=== PATIENT | female | born 1985 | race Caucasian/White ===

== ENCOUNTER 2016-04-21 10:32 | Inpatient (IN) | payer OTHER ==
[2016-04-21 11:52] LABS: Albumin 2.8 g/dL (3.2-5.2); Calcium 8.7 mg/dL (8.6-10.3); EGFR African American 165.8 (>60); EGFR Non-African American 128.9 (>60); Potassium 3.8 mmol/L (3.5-5.0); Total Bilirubin 0.3 mg/dL (0.2-1.0); Total Protein 5.8 g/dL (6.4-8.9)
[2016-04-21 12:41] LABS: Hematocrit 30 % (35-47); Hemoglobin 9.6 g/dl (12.0-16.0); Mean Corpuscular HGB Conc 32 g/dl (31-36); Mean Corpuscular Hemoglobin 24 pg (27-31); Mean Corpuscular Volume 74 fL (80-97); Mean Platelet Volume 9 um3 (7.4-10.4); Red Blood Count 3.97 10^6/ul (4.0-5.4); Red Cell Distribution Width 15 % (10.5-15); White Blood Count 11.1 10^3/ul (3.5-10.8)
[2016-04-21 12:43] LABS: Comments Flag Yes
[2016-04-21 13:00] LABS: Urine Bacteria 1+ (Absent); Urine Bilirubin Negative (Negative); Urine Glucose Negative (Negative); Urine Nitrite Negative (Negative)
[2016-04-21] MEDS ORDERED: Oxytocin in LR* 20 UNITS/1,000 ML BAG IVPB SCH ×3 (13:00→21:00)
[2016-04-21] MEDS ORDERED: OBEPIDURAL* 250 ML ONE (13:17)
[2016-04-21] MEDS ORDERED: EPHEDrine (Pressors)* 50 MG/ML VIAL IV PUSH PRN (15:29)
[2016-04-21] MEDS ORDERED: Phenylephrine IV* 40 MCG/ML 10 ML SYRINGE IV PUSH PRN (15:29)
[2016-04-21] MEDS ORDERED: Sodium Citrate/Citric Acid* 15 ML UDC PO PRN (15:29)
[2016-04-21] MEDS ORDERED: Famotidine TAB* 20 MG PO PRN (15:29)
[2016-04-21] MEDS ORDERED: Acetaminophen TAB* 325 MG ONE (15:41)
[2016-04-21] MEDS ORDERED: Misoprostol TAB* 200 MCG PR ONE (16:44)
[2016-04-21] MEDS ORDERED: Acetaminophen TAB* 325 MG PO PRN (16:44)
[2016-04-21] MEDS ORDERED: Dibucaine 1% 28.35 GM TUBE PR PRN (16:44)
[2016-04-21] MEDS ORDERED: Witch Hazel PAD* JAR TOPICAL PRN (16:44)
[2016-04-21] MEDS ORDERED: Glycerin ADULT SUPP PR PRN (16:44)
[2016-04-21] MEDS ORDERED: traMADol TAB* 50 MG PO PRN (16:47)
[2016-04-21] MEDS ORDERED: Ammonia Inhalant* 1 EA AMP ONE (18:14)
[2016-04-21] MEDS: Ibuprofen TAB* 600 MG PO PRN (18:30)
[2016-04-21] MEDS ORDERED: fentaNYL* 50 MCG/ML 2 ML VIAL (100 MCG VIAL) ONE (20:45)
[2016-04-21] MEDS ORDERED: Oxytocin in LR* 20 UNITS/1,000 ML BAG IVPB ONE (20:52)
[2016-04-21] MEDS ORDERED: fentaNYL* 50 MCG/ML 2 ML VIAL (100 MCG VIAL) IV ONE (21:15)
[2016-04-21] MEDS ORDERED: hydrALAZINE IV* 20 MG/ML VIAL ONE (21:25)
[2016-04-21 21:27] LABS: Comments Flag Yes; Hematocrit 23 % (35-47); Hemoglobin 7.5 g/dl (12.0-16.0)
[2016-04-21] MEDS: DULoxetine DR CAP* 20 MG CAP.DR PO SCH (23:03)
[2016-04-21] MEDS: Amitriptyline TAB* 50 MG PO SCH (23:04)
[2016-04-21] MEDS: Docusate CAP* 100 MG PO SCH (23:04)
[2016-04-21] MEDS: Pantoprazole TAB (NF) 20 MG TAB PO SCH (23:05)
[2016-04-22] MEDS: Ibuprofen TAB* 600 MG PO PRN ×4 (03:56→23:02)
[2016-04-22 07:57] LABS: Hematocrit 22 % (35-47); Mean Corpuscular HGB Conc 33 g/dl (31-36); Mean Corpuscular Hemoglobin 24 pg (27-31); Mean Corpuscular Volume 74 fL (80-97); Mean Platelet Volume 9 um3 (7.4-10.4); Red Blood Count 2.91 10^6/ul (4.0-5.4); Red Cell Distribution Width 16 % (10.5-15); White Blood Count 12.5 10^3/ul (3.5-10.8)
[2016-04-22 07:59] LABS: Comments Flag Yes
[2016-04-22 08:00] LABS: Add Diff/Slide Review? Slide Review Added
[2016-04-22] MEDS: Docusate CAP* 100 MG PO SCH ×3 (09:14→21:09)
[2016-04-22] MEDS: Ferrous Gluconate TAB* 324 MG TAB PO SCH ×2 (09:15→21:09)
[2016-04-22] MEDS: Simethicone TAB* 80 MG TAB.CHEW PO SCH (19:23)
[2016-04-22] MEDS: OBEPIDURAL* 250 ML EPIDURAL SCH (19:24)
[2016-04-22] MEDS: DULoxetine DR CAP* 20 MG CAP.DR PO SCH (21:09)
[2016-04-22] MEDS: Amitriptyline TAB* 50 MG PO SCH (21:10)
[2016-04-22] MEDS: Pantoprazole TAB (NF) 20 MG TAB PO SCH (21:10)
[2016-04-23] MEDS: Docusate CAP* 100 MG PO SCH ×3 (08:51→21:15)
[2016-04-23] MEDS: Ferrous Gluconate TAB* 324 MG TAB PO SCH ×2 (08:51→21:15)
[2016-04-23] MEDS: Ibuprofen TAB* 600 MG PO PRN ×2 (08:52→17:22)
[2016-04-23] MEDS: Labetalol TAB* 200 MG PO SCH ×2 (17:22→20:16)
[2016-04-23] MEDS: Pantoprazole TAB (NF) 20 MG TAB PO SCH (20:17)
[2016-04-23] MEDS: DULoxetine DR CAP* 20 MG CAP.DR PO SCH (21:15)
[2016-04-23] MEDS: Amitriptyline TAB* 50 MG PO SCH (21:15)
[2016-04-24] MEDS: Ibuprofen TAB* 600 MG PO PRN ×2 (01:07→08:22)
[2016-04-24] MEDS: Ferrous Gluconate TAB* 324 MG TAB PO SCH (08:21)
[2016-04-24] MEDS: Docusate CAP* 100 MG PO SCH (08:22)
[2016-04-24] MEDS: Labetalol TAB* 200 MG PO SCH (08:22)
[2016-04-24 08:39] VITALS: BP 149/94
== END 2016-04-24 12:46 | disposition home or self-care (01) | DRG 560 ==
LOC: MCHOBOUT 10:32 → MCHOB 11:58
PROVIDERS: ADMIT Obstetrics & Gynecology; ATTEND Obstetrics & Gynecology
PROC: 10E0XZZ Delivery of Products of Conception, External Approach (ICD-10-PCS; principal; 2016-04-21)
PROC: 3E033VJ Introduction of Other Hormone into Peripheral Vein, Percutaneous Approach (ICD-10-PCS; 2016-04-21)
PROC: 10907ZC Drainage of Amniotic Fluid, Therapeutic from Products of Conception, Via Natural or Artificial Opening (ICD-10-PCS; 2016-04-21)
PROC: 0HQ9XZZ Repair Perineum Skin, External Approach (ICD-10-PCS; 2016-04-21)
DX: O14.94 Unspecified pre-eclampsia, complicating childbirth (principal); Z68.42 Body mass index [BMI] 45.0-49.9, adult; D62 Acute posthemorrhagic anemia; E66.01 Morbid (severe) obesity due to excess calories; O99.344 Other mental disorders complicating childbirth; O99.214 Obesity complicating childbirth; F32.9 Major depressive disorder, single episode, unspecified; O70.0 First degree perineal laceration during delivery; O90.81 Anemia of the puerperium; Z3A.38 38 weeks gestation of pregnancy; Z37.0 Single live birth
CPT/HCPCS: 36415; 80053; 81003; 81015; 84550; 85014; 85018; 85025; 85027; 86850; 86900; 86901; 86922; 87086; A9270-GY; J0360; J3010

== ENCOUNTER 2016-10-06 23:50 | Emergency (ER) | payer OTHER ==
[2016-10-07] MEDS ORDERED: NS 0.9% 1000 ML* 1,000 ML IV ONE (00:18)
[2016-10-07 00:41] LABS: Comments Flag Yes; Hematocrit 30 % (35-47); Hemoglobin 9.1 g/dl (12.0-16.0); Mean Corpuscular HGB Conc 31 g/dl (31-36); Mean Corpuscular Hemoglobin 19 pg (27-31); Mean Platelet Volume 8 um3 (7.4-10.4); Red Blood Count 4.73 10^6/ul (4.0-5.4); Red Cell Distribution Width 19 % (10.5-15); White Blood Count 8.7 10^3/ul (3.5-10.8)
[2016-10-07 00:42] LABS: Mean Corpuscular Volume 62 fL (80-97)
[2016-10-07 00:57] LABS: ALT 38 U/L (7-52); AST 41 U/L (13-39); Albumin 4.1 g/dL (3.2-5.2); Alkaline Phosphatase 123 U/L (34-104); BUN/Creatinine Ratio 6.1 (8-20); Blood Urea Nitrogen 4 mg/dL (6-24); CO2 Carbon Dioxide 21 mmol/L (22-32); Calcium 8.8 mg/dL (8.6-10.3); Chloride 105 mmol/L (101-111); Creatine Kinase 799 U/L (10-223); EGFR African American 134.3 (>60); EGFR Non-African American 104.5 (>60); Globulin 2.7 g/dL (2-4); Glucose 145 mg/dL (70-100); Magnesium 2.2 mg/dL (1.9-2.7); Sodium 138 mmol/L (133-145); Total Protein 6.8 g/dL (6.4-8.9)
[2016-10-07 00:58] LABS: Anion Gap 12 mmol/L (2-11); Potassium 2.7 mmol/L (3.5-5.0)
[2016-10-07] MEDS ORDERED: Ondansetron INJ* 2 MG/ML VIAL ONE (01:06)
[2016-10-07 01:07] LABS: Acetaminophen < 15 mcg/mL; Alcohol 183 mg/dL (<10); Salicylate < 2.50 mg/dL (<30)
[2016-10-07] MEDS ORDERED: Ondansetron INJ* 2 MG/ML VIAL IV ONE (01:12)
[2016-10-07 01:16] LABS: TSH (Thyroid Stimulating Horm) 1.45 mcIU/mL (0.34-5.60)
[2016-10-07] MEDS ORDERED: Calcium Carbonate CHEW TAB* 500 MG (TUMS) PO ONE (05:17)
[2016-10-07] MEDS ORDERED: Magnesium Oxide TAB* 400 MG PO ONE (05:17)
[2016-10-07] MEDS ORDERED: Potassium Chlor TAB* 20 MEQ TAB.ER PO ONE (05:18)
[2016-10-07 06:15] LABS: Urine Bacteria 1+ (Absent); Urine Bilirubin Negative (Negative); Urine Glucose Negative (Negative); Urine Nitrite Negative (Negative)
[2016-10-07 07:56] VITALS: BP 142/86
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
--- NOTE | 2016-10-07 08:29 | RAD ---
INDICATION: Change of mental status COMPARISON: None TECHNIQUE: Noncontrast axial source images were acquired from the skull base to the vertex. FINDINGS: Ventricles/sulci: The ventricles and cisterns are normal in size and configuration for age. Brain parenchyma: There is no focal parenchymal finding, evidence of intracranial mass, or intracranial mass effect. Intracranial hemorrhage:None. Extra-axial spaces: Incidental note is made of 2 cm posterior fossa arachnoid cyst with associated mild pressure erosion of the inner table. Calvarium: There is no calvarial fracture or other calvarial abnormality. Scalp: There is no evidence of scalp or extracalvarial soft tissue abnormality. Paranasal sinuses/mastoid: The paranasal sinuses and mastoid air cells are clear. Other: None. IMPRESSION: No acute cranial findings. Incidental right posterior fossa arachnoid cyst
== END 2016-10-07 07:48 | disposition home or self-care (01) ==
LOC: ED 23:50
DX: R11.10 Vomiting, unspecified (principal); Z87.891 Personal history of nicotine dependence; F10.129 Alcohol abuse with intoxication, unspecified; Y90.6 Blood alcohol level of 120-199 mg/100 ml; E87.6 Hypokalemia; D64.9 Anemia, unspecified; R03.0 Elevated blood-pressure reading, without diagnosis of hypertension
CPT/HCPCS: 36415; 70450; 80053; 80320; 80329; 81003; 81015; 82140; 82550; 83605; 83735; 84443; 84484; 85025; 85610; 87077; 87086; 87186; 93005; 96374; 96375; 99283; A9270-GY; G0480; J2405

== ENCOUNTER 2017-08-14 07:25 | Inpatient (IN) | payer OTHER ==
[2017-08-14] MEDS ORDERED: Oxytocin in LR* 20 UNITS/1,000 ML BAG IVPB ONE (09:27)
[2017-08-14 09:40] LABS: Hematocrit 34 % (35-47); Mean Corpuscular HGB Conc 32 g/dl (31-36); Mean Corpuscular Hemoglobin 23 pg (27-31); Mean Corpuscular Volume 72 fL (80-97); Mean Platelet Volume 7.8 um3 (7.4-10.4); Platelet Count 269 10^3/ul (150-450); Red Blood Count 4.74 10^6/ul (4.00-5.40); Red Cell Distribution Width 26 % (10.5-15); White Blood Count 9.7 10^3/ul (3.5-10.8)
[2017-08-14] MEDS ORDERED: Oxytocin in LR* 20 UNITS/1,000 ML BAG IVPB SCH (10:00)
--- NOTE | 2017-08-14 10:00 | HP ---
General Information - General Information Maternal Age: 31 Grav: 5 Para: 3 SAB: 1 IEA: 0 Estimated Due Date: 08/20/17 Determined By: LMP Gestational Age in Weeks and Days: 39 Weeks and 1 Days Maternal Blood Type and Rh: O Positive - Results this Serology/RPR Result: Non-Reactive Rubella Result: Immune HBsAg Result: Negative HIV Result: Negative GBS Culture Result: Negative Past Medical History Delivery History: Hx Uncomplicated Vaginal Delivery, See Records Pertinent Past Medical History: See Records Past Medical History Comment: Obesity BMI 41 Chronic Hypertension Rheumatoid arthritis Pertinent Past Surgical History: See Records - Cholecystectomy 2007 Pertinent Family History: See Records - Antepartal Records Antepartal Records: Reviewed, Complicated by: - Morbid obesity Review of Systems Constitutional: Comfortable CV Complaint: No Respiratory: Shortness of Breath: No Gastrointestinal: No Nausea/Vomiting, Normal Bowel Movement Genitourinary: No Dysuria, No Bleeding, No Leaking Fluid Musculoskeletal: No Complaint Neurological: No Headache, No Visual Changes Movement: Normal Exam Allergies/Adverse Reactions: Allergies No Known Allergies Allergy (Verified 08/14/17 08:15) Height 5' 8" Weight 275lbs Temp 97.6 BP122/59 p 90's RR 20 Pox 98% RA Lab Values - Entire Visit: Laboratory Tests 08/14/17 08/14/17 09:18 09:18 WBC 9.7 RBC 4.74 Hgb 11.0 L Hct 34 L MCV 72 L MCH 23 L MCHC 32 RDW 26 H Plt Count 269 MPV 7.8 Blood Type O Positive - Measurements Height: 5 ft 8 in Weight: 275 lb Weight in lbs: [id number] Body Mass Index (BMI): 41.8 Pre- Weight: 280 lb Weight Gained This : -5 lbs and 0 ozs - Exam Abdomen: No Upper Quadrant Pain Breast: Breast Exam Deferred CVA: No CVA Tenderness Extremities: No Edema Heart: Normal Rhythm/Heart Sounds HEENT: No Significant Findings Lungs: Clear Bilaterally Rectal: Rectal Exam Deferred Reflexes: DTR 2+ Thyroid: No Thyromegaly - Abdominal Exam Abdomen Exam: Non-Tender, Fundal Height Consistent with Dates - Ultrasound/Biophysical Profile Ultrasound Status: Not Done Targeted Exam Findings See L&D Outpatient Visit Provider Note for Findings: N/A Cervical Exam: 4cm Effacement: 70% Station: -1 Presenting Part: Vertex Membrane Status: Intact Bleeding/Discharge: None EFM Findings - External Monitor Findings Baseline Heart Rate: 130 External Monitor Findings: Accelerations Present, No Pattern of Variable or Late Decelerations Contractions: None Assessment/Plan - Reason for Visit Reason for Visit: Patient is a 31 y/o with an IUP at 39 1/7 weeks complicated by morbid obesity and unstable lie. Advanced cervical dilation with good encarnacion score and vertex presentation admitted for induction of labor. - Obstetrical Risk Factors Obstetrical Risk Factors: Obesity, Chronic Hypertension Risk Factors Comment: Unstable lie now vertex. - Plan Plan: Induction - Date/Time of Admission Date of Admission: 08/14/17 Time of Admission: 09:00
[2017-08-14] MEDS ORDERED: OBEPIDURAL* 250 ML EPIDURAL ONE (10:07)
[2017-08-14 10:46] LABS: ABS Basophils 0 10^3/ul (0-0.2); ABS Eosinophils 0 10^3/ul (0-0.6); ABS Lymphocytes 2.1 10^3/ul (1.0-4.8); ABS Monocytes 0.8 10^3/ul (0-0.8); ABS Neutrophils 6.7 10^3/ul (1.5-7.7); ABS Nucleated RBC 0 10^3/ul; Eosinophil % 0.4 % (0-6); Lymphocyte % 21.5 % (25-47); Nucleated Red Blood Cells % 0.1
[2017-08-14] MEDS ORDERED: EPHEDrine (Pressors)* 50 MG/ML VIAL IV PUSH PRN ×2 (11:04)
[2017-08-14] MEDS ORDERED: Sodium Citrate/Citric Acid* 15 ML UDC PO PRN (11:04)
[2017-08-14] MEDS ORDERED: Famotidine TAB* 20 MG PO PRN (11:04)
[2017-08-14] MEDS ORDERED: Phenylephrine IV* 40 MCG/ML 10 ML SYRINGE IV PUSH PRN ×2 (11:04)
[2017-08-14] MEDS ORDERED: OBEPIDURAL* 250 ML EPIDURAL SCH (12:00)
[2017-08-14] MEDS ORDERED: Witch Hazel PAD* JAR TOPICAL PRN (16:20)
[2017-08-14] MEDS ORDERED: Dibucaine 1% 28.35 GM TUBE PR PRN (16:20)
[2017-08-14] MEDS ORDERED: Glycerin ADULT SUPP PR PRN (16:20)
[2017-08-14] MEDS: Ibuprofen TAB* 600 MG PO PRN (16:56)
--- NOTE | 2017-08-14 17:12 | PROCNOTE ---
[facility] OB: Delivery Note - Delivery A Date of : 08/14/17 Time of : 16:13 Sex: Male Weight at : 7 lb 15 oz Score 1 Minute: 9 Score 5 Minutes: 9 Gestational Age in Weeks and Days at Delivery: 39 Weeks and 1 Days Delivery Method: Spontaneous Vaginal Labor: Induced Did Patient attempt ?: N/A, No Previous Amniotic Fluid: Clear Estimated Blood Loss: 100 Anesthesia/Analgesia: CEI for Labor Delivered By: Saul Estrella - Nursery Level of Nursery: Regular/Bedside - Perineum Perineal Injury: 1st Degree Perineal Injury Comment: small and not bleeding Perineal Repair: None - Events Delivery Events of Note: Pitocin During Labor
[2017-08-14] MEDS: Docusate CAP* 100 MG PO SCH (21:06)
[2017-08-14] MEDS: Gabapentin CAP(*) 300 MG PO SCH (21:06)
[2017-08-15] MEDS: Ibuprofen TAB* 600 MG PO PRN ×3 (00:10→12:36)
[2017-08-15] MEDS: Simethicone TAB* 80 MG TAB.CHEW PO SCH (00:19)
[2017-08-15] MEDS: Acetaminophen TAB* 325 MG PO PRN ×2 (02:39→08:40)
[2017-08-15 08:18] LABS: Hematocrit 31 % (35-47); Hemoglobin 10.1 g/dl (12.0-16.0); Mean Corpuscular HGB Conc 33 g/dl (31-36); Mean Corpuscular Hemoglobin 24 pg (27-31); Mean Corpuscular Volume 73 fL (80-97); Mean Platelet Volume 8.1 um3 (7.4-10.4); Platelet Count 230 10^3/ul (150-450); Red Blood Count 4.29 10^6/ul (4.00-5.40); Red Cell Distribution Width 26 % (10.5-15); White Blood Count 8.7 10^3/ul (3.5-10.8)
[2017-08-15] MEDS: Docusate CAP* 100 MG PO SCH ×2 (08:36→12:36)
[2017-08-15] MEDS: Gabapentin CAP(*) 300 MG PO SCH ×2 (08:40→14:08)
[2017-08-15] MEDS ORDERED: Ferrous Gluconate TAB* 324 MG TAB PO SCH (09:00)
[2017-08-15] MEDS ORDERED: Propranolol TAB* 10 MG PO SCH (09:00)
[2017-08-15 09:08] LABS: ABS Basophils 0 10^3/ul (0-0.2); ABS Eosinophils 0.1 10^3/ul (0-0.6); ABS Lymphocytes 2.4 10^3/ul (1.0-4.8); ABS Monocytes 0.5 10^3/ul (0-0.8); ABS Neutrophils 5.7 10^3/ul (1.5-7.7); ABS Nucleated RBC 0 10^3/ul; Eosinophil % 1.2 % (0-6); Lymphocyte % 27.4 % (25-47); Nucleated Red Blood Cells % 0
[2017-08-15 12:09] VITALS: BP 125/83
== END 2017-08-15 18:45 | disposition home or self-care (01) | DRG 560 ==
LOC: MCHOBOUT 07:25 → MCHOB 09:08
PROVIDERS: ADMIT Obstetrics & Gynecology; ATTEND Obstetrics & Gynecology
PROC: 10907ZC Drainage of Amniotic Fluid, Therapeutic from Products of Conception, Via Natural or Artificial Opening (ICD-10-PCS; principal; 2017-08-14)
PROC: 10E0XZZ Delivery of Products of Conception, External Approach (ICD-10-PCS; 2017-08-14)
DX: O99.214 Obesity complicating childbirth (principal); Z68.41 Body mass index [BMI] 40.0-44.9, adult; E66.01 Morbid (severe) obesity due to excess calories; O16.4 Unspecified maternal hypertension, complicating childbirth; O70.0 First degree perineal laceration during delivery; O99.02 Anemia complicating childbirth; Z3A.39 39 weeks gestation of pregnancy; Z37.0 Single live birth
CPT/HCPCS: 36415; 85025; 86850; 86900; 86901; A9270-GY

== ENCOUNTER 2017-08-18 10:19 | Emergency (ER) | payer OTHER ==
[2017-08-18] MEDS ORDERED: NS 0.9% 1000 ML* 1,000 ML IV ONE (11:40)
[2017-08-18] MEDS ORDERED: Ketorolac INJ* 30 MG/ML 1 ML VIAL IV PUSH ONE (11:40)
[2017-08-18] MEDS ORDERED: Metoclopramide IV* 5 MG/ML 2 ML VIAL IV ONE (11:40)
[2017-08-18] MEDS ORDERED: diPHENhydraMINE PO* 50 MG PO ONE (11:40)
[2017-08-18 12:18] LABS: EGFR Non-African American 133.7 (>60)
--- NOTE | 2017-08-18 12:22 | RAD ---
INDICATION: Fever COMPARISON: None TECHNIQUE: PA and lateral dual-energy views were obtained. FINDINGS: Bones/Soft Tissues: There are no acute bony findings. Cardiomediastinal: The cardiomediastinal silhouette is normal. Lungs: There are no infiltrates. Pleura: There are no pleural effusions. Other: None IMPRESSION: NEGATIVE EXAMINATION.
[2017-08-18 12:49] LABS: ABS Nucleated RBC 0 10^3/ul; Hematocrit 36 % (35-47); Hemoglobin 11.7 g/dl (12.0-16.0); Mean Corpuscular HGB Conc 33 g/dl (31-36); Mean Corpuscular Hemoglobin 24 pg (27-31); Mean Corpuscular Volume 74 fL (80-97); Mean Platelet Volume 7.8 um3 (7.4-10.4); Nucleated Red Blood Cells % 0.2; Platelet Count 206 10^3/ul (150-450); Red Blood Count 4.87 10^6/ul (4.00-5.40); Red Cell Distribution Width 26 % (10.5-15); White Blood Count 4.2 10^3/ul (3.5-10.8)
[2017-08-18 12:54] LABS: ABS Neutrophils 2.6 10^3/ul (1.5-7.7); ABS Neutrophils 2.7 10^3/ul (1.5-7.7); Monocytes % 7 % (0-7)
--- NOTE | 2017-08-18 14:12 | RAD ---
INDICATION: Evaluate for retained products of conception. August 14, 2017 COMPARISON: None TECHNIQUE: Longitudinal and transverse transabdominal scans of the pelvis were obtained. FINDINGS: Uterus: The uterus is enlarged in this patient. There are no focal masses. The uterus measures 19.4 x 8.9 x 13.5 cm. Endometrial thickness: The endometrial thickness is measured at 0.4 cm. The endometrium is thickened and heterogeneous. This may be related to blood since the patient is recently . Retained products cannot absolutely be excluded at this time. Free fluid: There is no significant free fluid . Ovaries: The ovaries are normal in size. The right ovary measures 3.2 x 2.0 x 2.5 cm. The left ovary measures 4.1 x 2.3 x 3.4 cm. . Doppler interrogation demonstrates flow to each ovary. Other: None IMPRESSION: POST UTERUS WITH HETEROGENEOUS AND THICKENED ENDOMETRIUM MOST LIKELY RELATED TO BLADDER ALTHOUGH RETAINED PRODUCTS CANNOT BE EXCLUDED.
[2017-08-18 15:33] LABS: Urine Appearance Clear; Urine Blood 2+ (Negative); Urine Color Yellow; Urine Ketones Negative (Negative); Urine Protein Negative (Negative); Urine Specific Gravity 1.009 (1.010-1.030); Urine Urobilinogen Negative (Negative)
[2017-08-18 16:03] VITALS: BP 121/87
--- NOTE | 2017-08-18 16:50 | ED ---
Giovanni Gonzalez Angela, scribed for Julius Fuentes MD on 08/18/17 at 1122 . HPI Febrile Illness - HPI Summary HPI Summary: This pt is a 31 y/o female presenting to [facility] referred by Dr. Morgan c/o fever and chills since yesterday afternoon. Pt additionally reports headache x3 days, located on the frontal head. Pt states yesterday at 15:30 she suddenly began to feel chills. She was shivering and freezing in warm temperature of about 90F, per . Denies abd pain, cough, sinus congestion, sore throat, ear aches. Pt recently gave 4 days ago and had a vaginal delivery at 36 weeks. She didn't have any problems or issues with her . She is . - History of Current Complaint Chief Complaint: EDFever Time Seen by Provider: 08/18/17 11:02 Hx Obtained From: Patient Onset/Duration: Started Days Ago - 1, Resolved Timing: Lasting Days - 1 Current Severity: Moderate Pain Intensity: 6 - frontal headache Pain Scale Used: 0-10 Numeric Aggravating Factors: Nothing Alleviating Factors: Nothing Associated Signs and Symptoms: Chills, Headache, Other: - NEGATIVE: abd pain, cough, sinus congestion, sore throat, ear aches. - Allergy/Home Medications Allergies/Adverse Reactions: Allergies Allergy/AdvReac Type Severity Reaction Status Date / Time No Known Allergies Allergy Verified 08/18/17 10:32 PMH/Surg Hx/FS Hx/Imm Hx Cardiovascular History: Reports: Hx Hypertension Denies: Hx Myocardial Infarction Respiratory History: Denies: Hx Chronic Obstructive Pulmonary Disease (COPD) Musculoskeletal History: Reports: Hx Back Problems, Hx Fibromyalgia, Other Musculoskeletal History - Right Knee Pain Neurological History: Reports: Hx Headaches, Hx Migraine Psychiatric History: Reports: Hx Anxiety, Hx Depression - Surgical History Surgery Procedure, Year, and Place: cholecystectomy 2005. tonsilectomy 1995 Infectious Disease History: Yes Infectious Disease History: Denies: Traveled Outside the [place] in Last 30 Days - Family History Known Family History: Positive: Other - GERD - Social History Alcohol Use: None Alcohol Amount: stated none in Substance Use Type: Reports: Other Substance Use Comment - Amount & Last Used: Tramadol, Gabapentin Smoking Status (MU): Former Smoker Type: Cigarettes Review of Systems Positive: Fever, Chills Negative: Sore Throat, Ear Ache, Nasal Discharge, Other - sinus congestion Negative: Cough Negative: Abdominal Pain Positive: Headache All Other Systems Reviewed And Are Negative: Yes Physical Exam - Summary Physical Exam Summary: Appearance: The patient is well-nourished in no acute distress and in no acute pain. Skin: The skin is warm and dry and skin color reflects adequate perfusion. HEENT: The head is normocephalic and atraumatic. The pupils are equal and reactive. The conjunctivae are clear and without drainage. Nares are patent and without drainage. Mouth reveals moist mucous membranes and the throat is without erythema and exudate. The external ears are intact. The ear canals are patent and without drainage. The tympanic membranes are intact. Neck: the neck is supple with full range of motion and non-tender. There are no carotid bruits. There is no neck vein distension. Respiratory: Chest is non-tender. Lungs are clear to auscultation and breath sounds are symmetrical and equal. Cardiovascular: Heart is regular rate and rhythm. There is no murmur or rub auscultated. There is no peripheral edema and pulses are symmetrical and equal. Abdomen: The abdomen is soft and non-tender. There are normal bowel sounds heard in all four quadrants and there is no organomegaly palpated. Musculoskeletal: There is no back tenderness noted. Extremities are non-tender with full range of motion. There is good capillary refill. There is no peripheral edema or calf tenderness elicited. Neurological: Patient is alert and oriented to person, place and time. The patient has symmetrical motor strength in all four extremities. Cranial nerves are grossly intact. Deep tendon reflexes are symmetrical and equal in all four extremities. Psychiatric: The patient has an appropriate affect and does not exhibit any anxiety or depression. Triage Information Reviewed: Yes Vital Signs On Initial Exam: Initial Vitals Temp Pulse Resp BP Pulse Ox 97.1 F 91 17 131/94 97 08/18/17 10:33 08/18/17 10:33 08/18/17 10:33 08/18/17 10:33 08/18/17 10:33 Vital Signs Reviewed: Yes Diagnostics - Vital Signs Vital Signs Temp Pulse Resp BP Pulse Ox 08/18/17 10:33 97.1 F 91 17 131/94 97 - Laboratory Lab Results: Lab Results 08/18/17 08/18/17 08/18/17 Range/Units 11:52 11:52 14:55 WBC 4.2 (3.5-10.8) 10^3/ul RBC 4.87 (4.00-5.40) 10^6/ul Hgb 11.7 L (12.0-16.0) g/dl Hct 36 (35-47) % MCV 74 L (80-97) fL MCH 24 L (27-31) pg MCHC 33 (31-36) g/dl RDW 26 H (10.5-15) % Plt Count 206 (150-450) 10^3/ul MPV 7.8 (7.4-10.4) um3 Neut % (Auto) Not Reportable Lymph % (Auto) Not Reportable [place] % (Auto) Not Reportable Eos % (Auto) Not Reportable Baso % (Auto) Not Reportable Absolute Neuts (auto) 2.7 (1.5-7.7) 10^3/ul Absolute Lymphs (auto) Not Reportable Absolute Monos (auto) Not Reportable Absolute Eos (auto) Not Reportable Absolute Basos (auto) Not Reportable Absolute Nucleated RBC 0 10^3/ul Immature Gran % 4 (0-9) % Neutrophils % 63 (38-83) % Band Neutrophils % 4 (0-8) % Lymphocytes % 18 L (25-47) % Reactive Lymphs % 8 H (0-6) % Monocytes % 7 (0-7) % Eosinophils % 0 (0-6) % Basophils % 0 (0-2) % Nucleated RBC % 0.2 Abs Neuts (Manual) 2.6 (1.5-7.7) 10^3/ul Abs Lymphs (Manual) 0.8 L (1.0-4.8) 10^3/ul Abs Monocytes (Manual) 0.3 (0-0.8) 10^3/ul Absolute Eos (Manual) 0 (0-0.6) 10^3/ul Abs Basophils (Manual) 0 (0-0.2) 10^3/ul Normal RBC Morphology Not Reportable Microcytosis 1+ Hem Pathologist Commnt Cancelled Sodium 138 (135-145) mmol/L Potassium 3.8 (3.5-5.0) mmol/L Chloride 105 (101-111) mmol/L Carbon Dioxide 23 (22-32) mmol/L Anion Gap 10 (2-11) mmol/L BUN 5 L (6-24) mg/dL Creatinine 0.53 (0.51-0.95) mg/dL Est GFR ( Amer) 161.8 (>60) Est GFR (Non-Af Amer) 133.7 (>60) BUN/Creatinine Ratio 9.4 (8-20) Glucose 90 (70-100) mg/dL Calcium 8.8 (8.6-10.3) mg/dL Total Bilirubin 0.30 (0.2-1.0) mg/dL AST 16 (13-39) U/L ALT 13 (7-52) U/L Alkaline Phosphatase 121 H (34-104) U/L C-Reactive Protein 80.78 H (<8.01) mg/L Total Protein 6.3 L (6.4-8.9) g/dL Albumin 3.2 (3.2-5.2) g/dL Globulin 3.1 (2-4) g/dL Albumin/Globulin Ratio 1.0 (1-3) Urine Color Yellow Urine Appearance Clear Urine pH 7.0 (5-9) Ur Specific [place] 1.009 L (1.010-1.030) Urine Protein Negative (Negative) Urine Ketones Negative (Negative) Urine Blood 2+ A (Negative) Urine Nitrate Negative (Negative) Urine Bilirubin Negative (Negative) Urine Urobilinogen Negative (Negative) Ur Leukocyte Esterase Trace A (Negative) Urine WBC (Auto) 1+(6-10/hpf) A (Absent) Urine RBC (Auto) 3+(>10/hpf) A (Absent) Ur Squamous Epith Cells Present A (Absent) Urine Bacteria Absent (Absent) Urine Glucose Negative (Negative) Result Diagrams: 08/18/17 11:52 08/18/17 11:52 Lab Statement: Any lab studies that have been ordered have been reviewed, and results considered in the medical decision making process. - Radiology Chest XR Xray Interpretation: No Acute Changes - IMPRESSION: Negative examination. Dr. Fuentes has reviewed this radiology report. Radiology Interpretation Completed By: Radiologist - Additional Comments Diagnostic Additional Comments: Pelvic Ultrasound, as read by radiologist IMPRESSION: Post uterus with heterogeneous and thickened endometrium most likely related to bladder although retained products cannot be excluded. Dr. Fuentes has reviewed this radiology report. Course/Dx - Course Course Of Treatment: Ms. Joshi presented to the emergency department complaining of headache and fever for the past 3 days. She gave 4 days ago. It was a spontaneous vaginal delivery that was induced secondary to hypertension. She has a history of headaches, this one is frontal and similar to previous. She is afebrile here. She has a small amount of abdominal pain but she says less than her previous pregnancies. Labs were obtained and were within normal limits including a urine which showed no protein. Her diastolic blood pressure was in the high 80s or low 90s while she was here. Ultrasound was equivocal for retained products. I discussed the situation with Dr. Morgan who recommended discharge and follow-up with Dr. Ortiz. She got significant improvement of her headache with a migraine cocktail of Benadryl, ketorolac and Reglan. - Diagnoses Provider Diagnoses: Headache - Provider Notifications Discussed Care Of Patient With: Leonid Morgan Time Discussed With Above Provider: 14:58 Instructed by Provider To: Other - I discussed pt care with MARCOS Liang. Discharge - Sign-Out/Discharge Documenting (check all that apply): Discharge/Admit/Transfer - Discharge - Discharge Plan Condition: Stable Disposition: HOME Patient Education Materials: General Headache (ED) Referrals: [facility] [Outside] Saul Estrella MD [Primary Care Provider] - Additional Instructions: Please follow up with your primary care provider in 2-3 days. RETURN TO THE ED FOR ANY WORSENING SYMPTOMS. - Billing Disposition and Condition Condition: STABLE Disposition: Home The documentation as recorded by the Giovanni sal Angela accurately reflects the service I personally performed and the decisions made by me, Julius Fuentes MD.
== END 2017-08-18 15:55 | disposition home or self-care (01) ==
LOC: ED 10:19
DX: O99.89 Other specified diseases and conditions complicating pregnancy, childbirth and the puerperium (principal); O10.93 Unspecified pre-existing hypertension complicating the puerperium; R51 Headache; Z87.891 Personal history of nicotine dependence
CPT/HCPCS: 36415; 71046; 76856; 80053; 81003; 81015; 85025; 86140; 87086; 96360; 99284; A9270-GY; J1885; J2765